=== PATIENT | female | born 1960 | race Caucasian/White ===

== ENCOUNTER → 2018-09-06 08:03 | Outpatient (CLI) | payer OTHER, SELFPAY ==
--- NOTE | 2018-09-06 | DI.MG.S_ITS ---
BILATERAL DIGITAL SCREENING MAMMOGRAM 3D/2D WITH CAD WITH AUGMENTATION: 09/06/2018 CLINICAL: Routine screening. Comparison is made to exams dated: 07/27/2017 mammogram, 09/02/2016 mammogram, and 09/02/2015 mammogram - [facility]. The tissue of both breasts is extremely dense, which lowers the sensitivity of mammography. Current study was also evaluated with a Computer Aided Detection (CAD) system. Bilateral breast implants are stable. No significant masses, calcifications, or other findings are seen in either breast. There has been no significant interval change. IMPRESSION: NEGATIVE There is no mammographic evidence of malignancy. A 1 year screening mammogram is recommended. This exam was interpreted at Station ID: [id number]. NOTE: For mammograms, a report in lay terms will be sent to the patient. Approximately 15% of breast malignancies will not be visualized mammographically. In the management of a palpable breast mass, a negative mammogram must not discourage biopsy of a clinically suspicious lesion. Electronically Signed By: Rosario [email or web address]/[email or web address]:09/06/2018 11:56:41 letter sent: Normal Exam ACR BI-RADS Category 1: Negative [id number]
== END ==
PROVIDERS: PCP Specialist; Visit Provider Specialist
DX: Z12.31 Encounter for screening mammogram for malignant neoplasm of breast (principal)
CPT/HCPCS: 77063; 77067

== ENCOUNTER → 2019-09-09 13:30 | Outpatient (CLI) | payer OTHER, SELFPAY ==
--- NOTE | 2019-09-09 | DI.MG.S_ITS ---
BILATERAL DIGITAL SCREENING MAMMOGRAM 3D/2D WITH CAD WITH AUGMENTATION: 09/09/2019 CLINICAL: Routine screening. Comparison is made to exams dated: 09/06/2018 mammogram - [facility], 07/27/2017 mammogram, 09/02/2016 mammogram, and 09/02/2015 mammogram - [facility]. The tissue of both breasts is extremely dense, which lowers the sensitivity of mammography. Current study was also evaluated with a Computer Aided Detection (CAD) system. Bilateral breast implants are stable. There are mole markers on both breasts. No significant masses, calcifications, or other findings are seen in either breast. There has been no significant interval change. IMPRESSION: NEGATIVE There is no mammographic evidence of malignancy. A 1 year screening mammogram is recommended. This exam was interpreted at Station ID: [id number]. NOTE: For mammograms, a report in lay terms will be sent to the patient. Approximately 15% of breast malignancies will not be visualized mammographically. In the management of a palpable breast mass, a negative mammogram must not discourage biopsy of a clinically suspicious lesion. Electronically Signed By: Jeff pete/aliya:09/09/2019 19:16:55 letter sent: Normal Exam ACR BI-RADS Category 1: Negative [id number]
== END ==
PROVIDERS: PCP Specialist; Visit Provider Specialist
DX: Z12.31 Encounter for screening mammogram for malignant neoplasm of breast (principal)
CPT/HCPCS: 77063; 77067

== ENCOUNTER 2019-09-20 00:54 | Observation (INO) | payer OTHER, SELFPAY ==
[2019-09-20] VITALS (8 sets, daily range): BP systolic 94–115; BP diastolic 60–89; PULSE 49–71; RESP 16–20; TEMP 36.5–36.8; O2SAT 94–100; BMI 23.3
--- NOTE | 2019-09-20 01:28 | DI.RAD.S_ITS ---
PROCEDURE: XR CHEST 1V INDICATIONS: chest pain TECHNIQUE: One view of the chest was acquired. COMPARISON: None. FINDINGS: Surgical changes and devices: None. Lungs and pleura: Lungs are clear. No pleural effusions or pneumothorax. Mediastinum: Mediastinal contours appear normal. Heart size is normal. Bones and chest wall: No suspicious bony lesions. Overlying soft tissues appear unremarkable. IMPRESSION: No acute cardiopulmonary disease process. Dictated by: Mare Justice MD, PhD on 09/20/2019 at 8:31 Approved by: Mare Justice MD, PhD on 09/20/2019 at 8:32
--- NOTE | 2019-09-20 01:28 | DI.US.S_ITS ---
PROCEDURE: US ABDOMEN LIMITED INDICATIONS: RIGHT UPPER QUADRANT PAIN TECHNIQUE: Real-time focused scanning was performed of the abdomen, with image documentation. COMPARISON: [facility], CT, CT ABDOMEN PELVIS W CON, 09/20/2019, 1:30. FINDINGS: Liver has normal sonographic appearance. No gallstones. Gallbladder wall is slightly thickened at 3.6 mm. Small amount of pericholecystic fluid. Negative sonographic Lala's sign. Biliary tree is nondilated the common bile duct measuring 2.5 mm. Pancreas is sonographically normal. IMPRESSION: 1. No cholelithiasis. 2. Nonspecific slight gallbladder wall thickening and small amount pericholecystic fluid. CT scan obtained 09/20/2019 demonstrates hepatic periportal edema and distended intrahepatic IVC possibly related to volume overload which could account for the pericholecystic fluid. If there is continued clinical concern for cholecystitis, than nuclear medicine HIDA scan should be considered for further evaluation. Dictated by: Mare Justice MD, PhD on 09/20/2019 at 8:14 Approved by: Mare Justice MD, PhD on 09/20/2019 at 8:19
--- NOTE | 2019-09-20 01:28 | DI.CT.S_ITS ---
PROCEDURE: CT ABDOMEN PELVIS W CON INDICATIONS: Colonoscopy today vomiting, increased abdominal pain TECHNIQUE: After the administration of intravenous contrast, 5 mm thick sections acquired from the diaphragm to the symphysis. 5 mm coronal and sagittal reformats were acquired. For radiation dose reduction, the following was used: automated exposure control, adjustment of mA and/or kV according to patient size. COMPARISON: [facility], , ABDOMEN LIMITED, 09/20/2019, 2:10. FINDINGS: Image quality: Excellent. ABDOMEN: Lung bases: Lung bases are clear. Heart size is normal. Note is made of right breast implant. Solid organs: There is a 5 mm indeterminate hypodense nodule in the anterior segment of the right hepatic lobe. Liver is demonstrates subtle nodular contour suggesting cirrhosis. There is periportal edema. Gallbladder contains no opaque gallstones. There is a small amount of pericholecystic fluid. Biliary system is dilated. Pancreas enhances normally. Spleen is normal in size and enhancement. No adrenal nodules. Kidneys demonstrate normal size and enhancement, without hydronephrosis. Peritoneum and bowel: There is mild colonic wall thickening in sigmoid colon suggesting colitis. Bowel loops demonstrate normal wall thickness and caliber. Normal appendix. There is a small amount of free fluid. No free air. Nodes and vessels: No retroperitoneal or mesenteric adenopathy by size criteria. Aorta and inferior vena cava are normal in size. Miscellaneous: No ventral hernias. PELVIS: Genitourinary: Bladder wall thickness is normal. Miscellaneous: No inguinal hernias or adenopathy. Bones: No suspicious bony lesions. No vertebral body compression fractures. IMPRESSION: 1. Nodular contour of liver suggesting cirrhosis. There is periportal edema. Please correlate with liver function tests. 2. A 5 mm indeterminate hepatic hypodensity in the anterior segment of the right hepatic lobe. Statistically, this most likely a cyst or hemangioma. 3. There is a small amount of ascites around liver and in the gallbladder fossa. No gallstones or gallbladder wall thickening. The findings could be secondary to liver disease such as hepatitis. 4. Mild colonic wall thickening in sigmoid colon suggesting mild colitis. 5. A small amount of free fluid in the cul-de-sac. Dictated by: Triston Meadows M.D. on 09/20/2019 at 8:11 Approved by: Triston Meadows M.D. on 09/20/2019 at 8:21
--- NOTE | 2019-09-20 01:30 | ED.ABDPAIN ---
HPI - Abdominal Pain General Chief Complaint: Abdominal Pain Stated Complaint: colonoscopy yes now with chest pain md sent Time Seen by Provider: 09/20/19 01:22 Source: patient Mode of arrival: Family Vehicle Limitations: no limitations History of Present Illness HPI narrative: Patient is a 58-year-old female who presents with abdominal pain and vomiting. She actually had a routine colonoscopy done today and telling him she had some polyps removed. She woke up she expected to have some abdominal cramping which she did however the pain seemed to move up into her chest and she has been vomiting nonstop. She denies shortness of breath or fevers. Her abdomen feels a little bloated to her. MD complaint: abdominal pain Onset (ago): hour(s) Pain Consistency: constant Location: diffuse Severity: moderate Quality: cramping Radiation: chest Related Data Home Medications Medication Instructions Recorded Confirmed estradiol [Estrace] 1 gm VAGINAL QWEEK #0 02/28/18 09/20/19 Previous Rx's Medication Instructions Recorded escitalopram oxalate 10 mg tablet 10 mg PO QDAY #90 tab 04/13/18 levothyroxine 88 mcg tablet 88 mcg PO QAM #90 tab 04/13/18 Allergies Allergy/AdvReac Type Severity Reaction Status Date / Time azithromycin Allergy Verified 09/20/19 01:17 morphine AdvReac Severe Hallucinati Verified 09/20/19 04:57 ng Review of Systems Review of Systems Narrative: GENERAL: Denies chills, fatigue, malaise, fever, sweats, travel HEENT: Denies sinus pain, ear pain, sore throat, difficulty swallowing, neck pain RESPIRATORY: Denies dyspnea, cough, wheezing, hemoptysis, sputum. CARDIOVASCULAR: Denies chest pain, palpitations, orthopnea, edema GASTROINTESTINAL: See HPI : Denies dysuria, frequency, incontinence, hematuria, urinary retention, flank pain. MUSCULOSKELETAL: Denies weakness, joint pain, or bony pain SKIN: No rash, no erythema, no pruritus NEUROLOGIC: Denies weakness, dizziness, headache, numbness, change in speech, confusion PSYCHIATRIC: No concerning psychosocial issues. 12 point review of systems is negative except for those stated above and HPI Patient History Medical History Ankle pain (Resolved) Anxiety (Chronic) Atypical mole (Resolved) Chickenpox (Resolved) Colon polyps (Resolved 2003) Fractures (Resolved) Hypothyroidism (Chronic 1999) Surgical History History of ankle surgery (Resolved 2011) Hx of breast augmentation (Resolved Unknown) Hx of section (Resolved 1990) Hx of hysterectomy (Chronic ~1999) Hx of tonsillectomy (Resolved Unknown) Family History Brother Age: 56 Colon polyps Brother Age: 46 Colon polyps Mother Age: 78 Hypertension High cholesterol Mental health problem Stroke Sister Age: 55 Uterine cancer Father Cancer Social History household members: spouse Smoking Status: Never smoker alcohol intake: current alcohol intake frequency: 0-2 drinks per day Alcohol type: wine Substance Use Type: does not use Exam Initial Vital Signs Initial Vital Signs: Vital Signs Temperature 97.8 F 09/20/19 01:04 Pulse Rate 71 09/20/19 01:04 Respiratory Rate 17 09/20/19 01:04 Blood Pressure 114/89 09/20/19 01:04 Pulse Oximetry 99 09/20/19 01:04 GENERAL: Well-appearing, well-nourished and in no acute distress. HEENT: Head atraumatic,EOMI, pupils reactive, face symmetric, moist mucous membranes CARDIOVASCULAR: Regular rate and rhythm without murmurs, rubs or gallops. RESPIRATORY: Breath sounds equal bilaterally, no wheezes rales or rhonchi. ABDOMEN: Soft, positive Lala sign tender right upper quadrant no guarding noted EXTREMITIES: Normal range of motion, no clubbing or edema. Neurovascularly intact NEUROLOGICAL: Alert and oriented x4.Normal gait and speech. SKIN: Warm, dry, no laceration, no petechiae, no rashes or lesions. Course Orders Ordered: ED Orders 09/20/19 01:03 EKG-12 Lead Routine 09/20/19 01:25 Complete Blood Count AUTO DIFF Stat Comprehensive Metabolic Panel Stat Lipase Stat Troponin & CK Cardiac Panel Stat 09/20/19 01:28 CT abdomen pelvis w con Stat US abdomen limited Stat XR chest 1V Stat Sodium Chloride (Normal Saline 0.9%) 1,000 mls @ 125 mls/hr IV CONT JON Ondansetron HCl (Zofran) 4 mg IV Q4HR PRN PRN Reason: Nausea And Vomiting Discontinued Medications Sodium Chloride (Normal Saline 0.9%) 1,000 mls @ 1,000 mls/hr IV BOLUS ONE Stop: 09/20/19 02:59 Last Admin: 09/20/19 02:18 Dose: 1,000 mls/hr Documented by: LISSETT Ketorolac Tromethamine (Toradol) 30 mg IV NOW ONE Stop: 09/20/19 02:01 Last Admin: 09/20/19 02:19 Dose: 30 mg Documented by: LISSETT Morphine Sulfate (Morphine) 2 mg IV Q4HR PRN PRN Reason: Pain, Mild (1-3) Ondansetron HCl (Zofran) 4 mg IV NOW ONE Stop: 09/20/19 02:01 Last Admin: 09/20/19 02:19 Dose: 4 mg Documented by: LISSETT Pantoprazole Sodium (Protonix) 40 mg IV NOW ONE Stop: 09/20/19 02:01 Last Admin: 09/20/19 02:19 Dose: 40 mg Documented by: LISSETT Vital Signs Vital signs: Vital Signs - 8 hr 09/20/19 01:04 09/20/19 01:14 09/20/19 02:07 Temperature 97.8 F Pulse Rate 71 58 L 60 Respiratory Rate 17 18 Blood Pressure 114/89 Blood Pressure [Left Arm] 114/89 103/63 Pulse Oximetry 99 100 09/20/19 03:16 Temperature Pulse Rate 56 L Respiratory Rate 18 Blood Pressure Blood Pressure [Left Arm] 105/60 Pulse Oximetry 98 MDM - Abdominal Pain Lab Data Attestation: I reviewed the patient's lab results. Result diagrams: 09/20/19 01:25 09/20/19 01:25 Labs: Lab Results 09/20/19 09/20/19 09/20/19 Range/Units 01:25 01:25 01:25 WBC 8.8 (4.5-11.0) X10^3/uL RBC 4.11 (4.0-5.2) X10^6/uL Hgb 13.0 (12.0-16.0) g/dL Hct 37.9 (36-46) % MCV 92.3 (80-100) fL MCH 31.6 (26-34) PG MCHC 34.3 (30-36) % RDW 13.3 (11.6-14.8) % Plt Count 140 L (150-400) X10^3/uL Neut % (Auto) 87.9 H (50-75) % Lymph % (Auto) 5.8 L (25-40) % [place] % (Auto) 4.7 (3-14) % Eos % (Auto) 1.2 L (2-4) % Baso % (Auto) 0.4 (0-2) % Neut # (Auto) 7700 H (0275-7552) /uL Lymph # (Auto) 500 L (7274-7022) /uL [place] # (Auto) 400 (0-900) /uL Eos # (Auto) 100 (0-450) /uL Baso # (Auto) 0 (0-100) /uL Sodium 141 (137-145) mmol/L Potassium 3.3 L (3.4-5.1) mmol/L Chloride 99 (98-107) mmol/L Carbon Dioxide 29 (22-32) mmol/L BUN 14 (7-17) mg/dL Creatinine 0.60 (0.52-1.04) mg/dL Estimated GFR > 60.0 (>60) mL/min BUN/Creatinine Ratio 23.3 H (6-22) Glucose 107 H (70-100) mg/dL Calcium 8.4 (8.4-10.2) mg/dL Total Bilirubin 2.0 H (0.2-1.3) mg/dL AST 570 H (14-36) IU/L ALT 279 H (<35) IU/L Alkaline Phosphatase 69 (38-126) U/L Total Creatine Kinase 95 (30-135) U/L CK-MB (CK-2) TNP CK-MB (CK-2) Rel Index TNP Troponin I < 0.012 (0.01-0.034) ng/mL Total Protein 6.7 (6.3-8.2) g/dL Albumin 4.5 (3.5-5.0) g/dL Globulin 2.2 (1.7-4.1) g/dL Albumin/Globulin Ratio 2.0 (1.0-2.8) Lipase 70 (23-300) U/L Imaging Data CT scan - abdomen: Radiologist's impression: Preliminary report. Periportal edema with distended intrahepatic IVC and small perihepatic fluid including jayla cholecystic fluid. This is a nonspecific however can be seen with volume overload. Other causes of periportal edema are not excluded. 2. No bowel injury or obstruction post colonoscopy. Suspect incomplete distention of the descending colon versus wall thickening the air-filled colon is thin walled US - abdomen: Radiologist's impression: Preliminary report small pericholecystic fluid without gallstones or gallbladder wall thickening. Negative Lala sign. This CT shows nonspecific periportal edema with distended intrahepatic IVC which can be seen with volume overload. This may account for jayla cholecystic fluid. ECG Data Attestation: I personally reviewed and interpreted this ECG as follows: Prior ECG tracings: not available for review Interpretation: Normal sinus rhythm rate 55 p.r. interval 160 for QRS [address] elevations depressions or T-wave inversions no sign of ischemia MDM Narrative Medical decision making narrative: Patient does have some mild right upper quadrant pain as she has significantly elevated liver enzymes along with elevated bilirubin. No evidence of gallstones or thickening gall bladder wall. I have discussed case with on-call surgery Dr. rey. At this time recommends observation only. Bridging orders placed, will recheck blood work. CT result ultrasound results blood work and symptoms do not quite match. This time will recheck blood work, later. Discharge Plan Departure Patient Disposition: Admitted as Observation Clinical Impression: Elevated liver enzymes Discharge Date/Time: 09/20/19 04:12 Admit Date/Time: 09/20/19 04:04 Admit Provider: Ruperto Rey
[2019-09-20 01:36] LABS: Add Manual Diff / Slide Review NO; Basophils Absolute Auto 0 /uL (0-100); Basophils Percent Auto 0.4 % (0-2); Eosinophils Absolute Auto 100 /uL (0-450); Eosinophils Percent Auto 1.2 % (2-4); Hematocrit 37.9 % (36-46); Lymphocytes Absolute Auto 500 /uL (1100-4500); Lymphocytes Percent Auto 5.8 % (25-40); Mean Corpuscular HGB Conc 34.3 % (30-36); Mean Corpuscular Hemoglobin 31.6 PG (26-34); Mean Corpuscular Volume 92.3 fL (80-100); Monocytes Absolute Auto 400 /uL (0-900); Monocytes Percent Auto 4.7 % (3-14); Neutrophils Absolute Auto 7700 /uL (1500-7000); Neutrophils Percent Auto 87.9 % (50-75); Platelet Count 140 X10^3/uL (150-400); Red Blood Cell Count 4.11 X10^6/uL (4.0-5.2); Red Cell Distribution Width 13.3 % (11.6-14.8); White Blood Cell Count 8.8 X10^3/uL (4.5-11.0)
[2019-09-20 01:49] LABS: Creatine Kinase 95 U/L (30-135)
[2019-09-20 01:50] LABS: Alanine Aminotransferase 279 IU/L (<35); Albumin 4.5 g/dL (3.5-5.0); Alkaline Phosphatase 69 U/L (38-126); Aspartate Aminotransferase 570 IU/L (14-36); BUN Creatinine Ratio 23.3 (6-22); Blood Urea Nitrogen 14 mg/dL (7-17); Calcium 8.4 mg/dL (8.4-10.2); Carbon Dioxide 29 mmol/L (22-32); Chloride 99 mmol/L (98-107); Estimated Glomerular Filt Rate > 60.0 mL/min (>60); Globulin 2.2 g/dL (1.7-4.1); Glucose 107 mg/dL (70-100); HEMOLYSIS 20 (0-50); Lipase 70 U/L (23-300); Potassium 3.3 mmol/L (3.4-5.1); Sodium 141 mmol/L (137-145); Total Protein 6.7 g/dL (6.3-8.2)
[2019-09-20 02:01] LABS: Troponin I < 0.012 ng/mL (0.01-0.034)
[2019-09-20] MEDS: SODIUM CHLORIDE 0.9% 1,000 ML 1000 ML IV (02:18)
[2019-09-20] MEDS: ONDANSETRON 4 MG/2 ML INJ IV (02:19)
[2019-09-20] MEDS: KETOROLAC 60 MG/2 ML VIAL 30 MG IV (02:19)
[2019-09-20] MEDS: PANTOPRAZOLE 40 MG VIAL IV (02:19)
--- NOTE | 2019-09-20 05:01 | PC.ADMIT ---
[email or web address] Admission Note: The patient,Pema Sams,58 y/o, was given written information regarding hospital policies, unit procedures and contact persons. Patient's smoking status: Never smoker. Vital Signs - 8 hr 09/20/19 01:04 09/20/19 01:14 09/20/19 02:07 Temperature 97.8 F Pulse Rate 71 58 L 60 Respiratory Rate 17 18 Blood Pressure 114/89 Blood Pressure [Left Arm] 114/89 103/63 Pulse Oximetry 99 100 09/20/19 03:16 09/20/19 04:08 09/20/19 04:15 Temperature 97.7 F Pulse Rate 56 L 56 L 58 L Respiratory Rate 18 20 18 Blood Pressure 115/74 Blood Pressure [Left Arm] 105/60 109/69 Pulse Oximetry 98 100 99 Pt arrived via wheelchair accompanied by ED POWERHOUSE ENGINEER, transferred self to bed, VSS, on RA, all systems except GI WNL. Pt had c/o abdominal pain, nausea and vomiting that brought her in today but has since resolved. BTs are hypoactive and pt reports that she has not passed stool or flatus since colonoscopy on 09/19. Pt denies pain, hx of falls, and can make needs known, call light in reach, functional, and pt demonstrated use. Pt is a low fall risk and is independent in the room.
--- NOTE | 2019-09-20 07:55 | P.HP_ITS ---
History of Present Illness History of Present Illness Date Patient Seen: 09/20/19 Time Patient Seen: 08:11 Chief complaint: colonoscopy yes now with chest pain md sent Narrative: This is a 50-year-old woman who underwent a routine colonoscopy yesterday an outside facility and then developed epigastric and chest pain in presented to the emergency room. Cardiac workup including laboratory studies and EKG were negative. She had a CT abdomen pelvis as well as an ultrasound that demonstrated pericholecystic fluid no evidence of colonic wall thickening or free air. With 1 dose of Toradol her abdominal pain completely resolved. Labs WBC 9, TB 2.0, AST 570, ALT 280 AP 70 Lipase normal. His a history of biliary colic and says that this episode is similar in nature to previous ones. She is without chest pain shortness of breath nausea vomiting or abdominal pain at this time. Medical history is significant for hypothyroidism and C section. No history of coronary artery disease valvular disease stroke peripheral vascular disease diabetes pulmonary or renal insufficiency. Patient History Medical History Ankle pain (Resolved) Anxiety (Chronic) Atypical mole (Resolved) Chickenpox (Resolved) Colon polyps (Resolved 2003) Fractures (Resolved) Hypothyroidism (Chronic 1999) Surgical History History of ankle surgery (Resolved 2011) Hx of breast augmentation (Resolved Unknown) Hx of section (Resolved 1990) Hx of hysterectomy (Chronic ~1999) Hx of tonsillectomy (Resolved Unknown) Family & Social History Family History Brother Age: 56 Colon polyps Brother Age: 46 Colon polyps Mother Age: 78 Hypertension High cholesterol Mental health problem Stroke Sister Age: 55 Uterine cancer Father Cancer Social History: household members spouse Prior Living Arrangements House Safety & Behavioral: Feels Safe in Current Yes Environment Been Physically Hurt or No Threatened By a Person Suicidal Ideation Description None Suicide Plan Description No Plan Tobacco & Substance use: Smoking Status Never smoker alcohol intake current alcohol intake frequency 0-2 drinks per day Substance Use Type does not use Meds Home Medications and Allergies Home Medications Medication Instructions Recorded Confirmed Type estradiol [Estrace] 1 gm VAGINAL QWEEK #0 02/28/18 09/20/19 History escitalopram oxalate 10 mg tablet 10 mg PO QDAY #90 tab 04/13/18 09/20/19 Rx levothyroxine 88 mcg tablet 88 mcg PO QAM #90 tab 04/13/18 09/20/19 Rx Allergies Allergy/AdvReac Type Severity Reaction Status Date / Time azithromycin Allergy Verified 09/20/19 01:17 morphine AdvReac Severe Hallucinati Verified 09/20/19 04:57 ng Review of Systems Review of Systems Narrative: A complete review of systems is negative except as noted in the HPI Exam Vital Signs (past 8 hours): - 09/20/19 01:04 09/20/19 01:14 09/20/19 02:07 Temperature 97.8 F Pulse Rate 71 58 L 60 Respiratory Rate 17 18 Blood Pressure 114/89 Blood Pressure [Left Arm] 114/89 103/63 Pulse Oximetry 99 100 09/20/19 03:16 09/20/19 04:08 09/20/19 04:15 Temperature 97.7 F Pulse Rate 56 L 56 L 58 L Respiratory Rate 18 20 18 Blood Pressure 115/74 Blood Pressure [Left Arm] 105/60 109/69 Pulse Oximetry 98 100 99 Oxygen Delivery Method Room Air Narrative Exam Narrative: General-no acute distress, well nourished HEENT-moist mucous membranes, no scleral icterus Neck-supple, no lymphadenopathy Chest- non labored respirations, clear to auscultation bilaterally Cardiac-regular rate no peripheral edema Abdomen-soft, nontender, non distended Extremities-warm, well perfused Neurological-alert and oriented, no focal deficits Objective Labs Result Diagrams: 09/20/19 01:25 09/20/19 01:25 Labs: Laboratory Results - last 24 hr 09/20/19 09/20/19 09/20/19 01:25 01:25 01:25 WBC 8.8 RBC 4.11 Hgb 13.0 Hct 37.9 MCV 92.3 MCH 31.6 MCHC 34.3 RDW 13.3 Plt Count 140 L Neut % (Auto) 87.9 H Lymph % (Auto) 5.8 L [place] % (Auto) 4.7 Eos % (Auto) 1.2 L Baso % (Auto) 0.4 Neut # (Auto) 7700 H Lymph # (Auto) 500 L [place] # (Auto) 400 Eos # (Auto) 100 Baso # (Auto) 0 Sodium 141 Potassium 3.3 L Chloride 99 Carbon Dioxide 29 BUN 14 Creatinine 0.60 Estimated GFR > 60.0 BUN/Creatinine Ratio 23.3 H Glucose 107 H Calcium 8.4 Total Bilirubin 2.0 H AST 570 H ALT 279 H Alkaline Phosphatase 69 Total Creatine Kinase 95 CK-MB (CK-2) TNP CK-MB (CK-2) Rel Index TNP Troponin I < 0.012 Total Protein 6.7 Albumin 4.5 Globulin 2.2 Albumin/Globulin Ratio 2.0 Lipase 70 Assessment & Plan Assessment & Plan narrative: This is a 50-year-old female history of biliary colic who underwent a colonoscopy at an outside facility yesterday who presents with epigastric pain and mild transaminitis. Cardiac workup negative. Her abdominal pain is completely resolved at this time afebrile, normal vitals and a CT abdomen pelvis with no free air no bowel wall thickening suggestive of perforation. Labs WBC 9, TB 2.0, AST 570, ALT 280 AP 70 Lipase normal. I reviewed her CT myself and there is pericholecystic fluid no choledocholithiasis or cholelithiasis. It is unclear as to what the source of her transaminitis mild hyperbilirubinemia is. -NPO IV fluid -repeat complete metabolic panel in addition to fractionation of the bilirubin this AM -SCDs and Lovenox for VT prophylaxis -will obtain records of colonoscopy from yesterday at outside facility Quality VTE Deep Vein Thrombosis/Pulmonary Embolism Present on Admission: No
[2019-09-20 09:36] LABS: Procalcitonin < 0.05 ng/mL (<0.5)
[2019-09-20] MEDS: ENOXAPARIN 40 MG/0.4 ML SYRINGE SUBCUT (09:42)
[2019-09-20] MEDS: ESCITALOPRAM 10 MG TABLET PO (09:43)
[2019-09-20] MEDS: POTASSIUM CHLORIDE 20 MEQ TAB 40 MEQ PO (09:43)
[2019-09-20] MEDS: LEVOTHYROXINE 88 MCG TABLET PO (09:43)
[2019-09-20 09:55] LABS: Alanine Aminotransferase 309 IU/L (<35); Albumin 3.8 g/dL (3.5-5.0); Alkaline Phosphatase 60 U/L (38-126); Aspartate Aminotransferase 347 IU/L (14-36); BUN Creatinine Ratio 16.7 (6-22); Bilirubin Direct 0.2 mg/dL (0.0-0.4); Bilirubin Total 1.3 mg/dL (0.2-1.3); Blood Urea Nitrogen 10 mg/dL (7-17); Calcium 8.9 mg/dL (8.4-10.2); Carbon Dioxide 31 mmol/L (22-32); Chloride 107 mmol/L (98-107); Estimated Glomerular Filt Rate > 60.0 mL/min (>60); Globulin 1.9 g/dL (1.7-4.1); Glucose 105 mg/dL (70-100); HEMOLYSIS < 15 (0-50); Potassium 4.2 mmol/L (3.4-5.1); Sodium 141 mmol/L (137-145); Total Protein 5.7 g/dL (6.3-8.2)
--- NOTE | 2019-09-20 12:23 | PM.PN.1 ---
Subjective Subjective Date Patient Seen: 09/20/19 Time Patient Seen: 12:23 Interval history: Pt denies pain, nausea, jaundice. She says she feels fine. Would like to eat and go home. Exam Vital Signs (past 8 hours): - 09/20/19 07:55 09/20/19 11:44 Temperature 98.2 F 98.2 F Pulse Rate 49 L 59 L Respiratory Rate 16 16 Blood Pressure 94/60 100/62 Pulse Oximetry 100 94 Oxygen Delivery Method Room Air Oxygen Flow Rate 0 Narrative Exam Narrative: GENERAL: Well groomed and cooperative. Appears stated age. Answers questions promptly and appropriately. Vital signs noted. HENT: Normocephalic, atraumatic. Hearing intact. Oral mucosa is pink and moist. EYES: Conjunctiva pink, sclera white, no periorbital swelling. CARDIOVASCULAR: Regular rate. No pedal edema. RESPIRATORY: Normal respiratory rate, breathing comfortably on room air. GASTROINTESTINAL: Abdomen soft and non-distended; mild TTP in mid and right epigastrium GENITALURINARY: No flank tenderness. MUSCULOSKELETAL: Equal tone and mass bilaterally. SKIN: Warm, dry, soft, appropriate color for ethnicity. No other lesions, rashes, or wounds. NEURO: Alert and Oriented X 3. No gross sensory deficits, or cognitive issues. PSYCH: Appropriate affect and mood. Objective Labs Result Diagrams: 09/20/19 01:25 09/20/19 08:30 Labs: Laboratory Results - last 24 hr 09/20/19 09/20/19 09/20/19 01:25 01:25 01:25 WBC 8.8 RBC 4.11 Hgb 13.0 Hct 37.9 MCV 92.3 MCH 31.6 MCHC 34.3 RDW 13.3 Plt Count 140 L Neut % (Auto) 87.9 H Lymph % (Auto) 5.8 L [place] % (Auto) 4.7 Eos % (Auto) 1.2 L Baso % (Auto) 0.4 Neut # (Auto) 7700 H Lymph # (Auto) 500 L [place] # (Auto) 400 Eos # (Auto) 100 Baso # (Auto) 0 Sodium 141 Potassium 3.3 L Chloride 99 Carbon Dioxide 29 BUN 14 Creatinine 0.60 Estimated GFR > 60.0 BUN/Creatinine Ratio 23.3 H Glucose 107 H Calcium 8.4 Total Bilirubin 2.0 H Direct Bilirubin AST 570 H ALT 279 H Alkaline Phosphatase 69 Total Creatine Kinase 95 CK-MB (CK-2) TNP CK-MB (CK-2) Rel Index TNP Troponin I < 0.012 Total Protein 6.7 Albumin 4.5 Globulin 2.2 Albumin/Globulin Ratio 2.0 Lipase 70 Procalcitonin 09/20/19 09/20/19 09/20/19 08:30 08:30 08:30 WBC RBC Hgb Hct MCV MCH MCHC RDW Plt Count Neut % (Auto) Lymph % (Auto) [place] % (Auto) Eos % (Auto) Baso % (Auto) Neut # (Auto) Lymph # (Auto) [place] # (Auto) Eos # (Auto) Baso # (Auto) Sodium 141 Potassium 4.2 Chloride 107 Carbon Dioxide 31 BUN 10 Creatinine 0.60 Estimated GFR > 60.0 BUN/Creatinine Ratio 16.7 Glucose 105 H Calcium 8.9 Total Bilirubin 1.3 Direct Bilirubin 0.2 AST 347 H ALT 309 H Alkaline Phosphatase 60 Total Creatine Kinase CK-MB (CK-2) CK-MB (CK-2) Rel Index Troponin I Total Protein 5.7 L Albumin 3.8 Globulin 1.9 Albumin/Globulin Ratio 2.0 Lipase Procalcitonin < 0.05 Assessment & Plan Assessment and plan (1) Elevated liver enzymes: Current visit: Yes Status: Acute (2) Abnormal gall bladder diagnostic imaging: Current visit: Yes Status: Acute (3) Abdominal pain: Current visit: Yes Status: Acute Assessment & Plan narrative: This is a 58-year-old woman admitted to the hospital early this morning for severe acute abdominal pain and associated transaminitis. Her symptoms have almost entirely resolved. She has a tiny bit of tenderness in the epigastrium, but no pain, nausea, vomiting. She has an appetite and would like to eat I have explained to her that she has abnormal liver enzymes and a somewhat abnormal gallbladder on imaging. Although the CT scan mentions cirrhosis, it appears that her liver is essentially normal, which is verified on ultrasound. Her symptoms, labs, and imaging findings are most consistent with biliary dyskinesia. I have recommended to her that she have a workup for this as an outpatient which should include repeat complete metabolic panel and HIDA scan. She would prefer to do this as an outpatient. Plan: P.o. challenge If tolerates diet patient may be discharged home Follow-up with Dr. Skinner or myself in the next 1-2 weeks for a recheck of her symptoms, CMP, and HIDA Return to ER if recurrent symptoms, fever, or jaundice Time Spent With Patient Time with patient: 25 - 35 minutes (25 minutes were spent face to face with the patient. More than 50% of the time was spent in counseling and co-ordination of care regarding her abnormal lab and imaging findings related to her biliary symptoms, possible biliary dyskinesia, and transaminitis.) Quality VTE Deep Vein Thrombosis/Pulmonary Embolism Present on Admission: No
--- NOTE | 2019-09-20 12:58 | PC.NURSE ---
Pt resting in bed, states she would really like to walk around as she is antsy just laying in bed. Removed scd's for Pt ambulation. Pt states she has no pain or nausea after eating and is looking forward to going home at 1600.
--- NOTE | 2019-09-20 14:58 | PC.NURSE ---
Pt dressed and ready for discharge home with Po who is present at this time. Went over d/c instructions with Pt and Spouse - discussed d/c meds, time of last dose, reviewed stroke education, follow up, low fat diet, and answered all questions. HL was removed. Pt out via w/c by this RN to POV with Spouse and all belongings.
--- NOTE | 2019-09-21 10:19 | CM.DANOTE ---
Discharge Planning/Care Management DCP: assessment: late entry for 09/20: case was received, EMR reviewed and discussed in Team Rounds. Pt is a 59 year old female who admitted to care of [facility] 09/20: 0400. At time of Rounds POC was newly in process. Payer: [employer] PCP: DR. Collin Pina did see pt about noon and ok'd her for a d/c home and with pt's preferance to have continued workup in the outpt setting. Pt did go home with her a couple hours later with no needs identified by the care team members. Advanced directive, confirm from FAMILY Start: 09/20/19 04:40 Freq: Q24H Status: Discharge Protocol: Document 09/20/19 09:00 CM (Rec: 09/20/19 09:44 CM [id number]) Advance Directive, confirm on record Time 09:44 Person contacted Pt Copy received No CM Discharge Assessment Start: 09/21/19 10:17 Freq: Status: Active Protocol: Document 09/21/19 10:18 ITV (Rec: 09/21/19 10:19 ITV [id number]) Discharge Planning Assessment Advance Directives? Yes History Provided By Medical Record Prior Living Arrangements House Household Members spouse Is patient alert and oriented? Yes Review Status In Process
--- NOTE | 2019-10-11 23:33 | PC.NURSE ---
on 09/20/2019 1 liter normal saline infused at 0400.
== END 2019-09-20 15:00 | disposition home or self-care (01) ==
LOC: ED 02:51 → AC 04:04
PROVIDERS: Admitting Provider Surgery; Emergency Provider Emergency Medicine; PCP Specialist; Visit Provider Surgery
DX: R93.2 Abnormal findings on diagnostic imaging of liver and biliary tract (principal); R74.8 Abnormal levels of other serum enzymes; R10.9 Unspecified abdominal pain; R11.10 Vomiting, unspecified
CPT/HCPCS: 36415; 71045; 74177; 76705; 80053; 82248; 82550; 83690; 84145; 84484; 85025; 93005; 93010; 96361; 96372; 96374; 96375; 99219; 99283; 99285; G0378; C9113; J1650; J1885; J2405; Q9967

== ENCOUNTER 2019-10-15 06:13 | Day surgery (SDC) | payer OTHER, SELFPAY ==
[2019-09-20 04:18] VITALS: BMI 23.3
[2019-10-14 08:23] VITALS: BMI 23.3
[2019-10-15] VITALS (11 sets, daily range): BP systolic 97–123; BP diastolic 58–78; PULSE 50–71; RESP 8–16; TEMP 36.2–36.7; O2SAT 98–100; BMI 23.3
--- NOTE | 2019-10-15 | PATH_ITS ---
[facility] Accession Number: [id number] . 01 Material submitted: . gallbladder - GALLBLADDER . 02 Diagnosis: Gallbladder, Cholecystectomy: Mild chronic cholecystitis. No evidence of neoplasm. MRV 10/18/2019 1525 Local . 02 Electronically signed: . Charles Wen MD, PhD, Pathologist NPI- [id number] . 01 Gross description: . Received in formalin, labeled gallbladder, is an intact gallbladder (length-8.0 cm, diameter-2.7 cm) with blue-green smooth and shiny serosa and a patent cystic duct. No lymph nodes are identified. The lumen contains dark green watery bile. No calculi are identified. The mucosa is green smooth and flat. The wall is up to 0.1 cm thick. No nodules, masses or lesions are identified. Section code: (A1) cystic duct resection margin and two serial sections from the body; (A2) two longitudinal sections from the fundus. ([id number]) /[facility] 10/16/2019 1642 Local . 02 Pathologist provided ICD-10: K82.8, K81.1 . 02 CPT . 121023 Performed at: 01 [facility] [address], [place], [place] [id number] MD Misael Stein MD Phone: [phone] Performed at: 02 [facility] [address] [place], [place] [id number] MD Flakita Davis MD Phone: [phone]
[2019-10-15] MEDS: LACTATED RINGERS 1,000 ML 42 ML IV (07:20)
--- NOTE | 2019-10-15 07:35 | PM.PREOP ---
Pre-operative Note Interval Note History & Physical reviewed/Exam performed by Physician: Yes Changes to H&P: No
[2019-10-15] MEDS: CEFAZOLIN 2 GM/100 ML FROZ.PIGGY IV (07:51)
--- NOTE | 2019-10-15 08:09 | SUR.OPER ---
Supine on padded OR bed, head on pillow, safety belt at thigh, left arm padded and tucked at side. Right arm secured on padded arm oard <90 degrees abduction. Legs uncrossed. Padded footboard in place. Tape over blanket to secure lower legs.
[2019-10-15] MEDS: BUPIVACAINE 0.25% (PF) VIAL 30 ML INJ (08:21)
--- NOTE | 2019-10-15 09:11 | PM.OP.1 ---
Operative Date/Time/Diagnoses Date of procedure: 10/15/19 Time of procedure: 09:11 Pre-op diagnosis: Biliary dyskinesia Post-op diagnosis: same Procedure & Clinicians Procedure: Laparoscopic cholecystectomy Same procedure as scheduled: Yes Indications: This is a 59-year-old woman with biliary dyskinesia who presents for elective laparoscopic cholecystectomy. Please refer to the H&P for further detail. Surgeon: Ruperto Marcus Click Yes if Unassisted: No Anesthesia Type: General Operative Notes Findings: Distended gallbladder no acute cholecystitis Specimen(s): other (Gallbladder) Estimated Blood Loss (mL): 10 Procedure in detail: The patient was brought to the operating room placed supine on the table. Bilateral lower extremity compression devices were applied. General anesthesia was induced and they were intubated with an endotracheal tube. They received 3.75 g of Zosyn prior to skin incision. A time-out was performed to ensure the correct patient procedure necessary equipment within the operating room. They were then prepped and draped in the usual sterile fashion. Infraumbilical incision was made the umbilical stalk was grasped and elevated and the fascia was sharply incised. The abdomen was entered atraumatically. A 10 mm trocar was then placed into the abdomen. Pneumoperitoneum was established. The laparoscopic camera was inserted into the abdomen inspection was made that demonstrated no evidence of injury upon entry. We then placed our working ports the 1st 5 mm port high in the epigastrium and then 2 in the right upper quadrant. The gallbladder was grasped and retracted over the liver and grasped laterally by the fundus. The triangle of Calot was exposed. The triangle of calot was then skeletonized using hook electrocautery and demonstrated the cystic duct clearly entering the gallbladder the cystic artery and the liver and in the background. With the critical view of safety established the cystic duct was clipped twice proximally and once distally and then sharply divided and the cystic artery was taken in the same fashion. Next the gallbladder was removed from the liver bed using electro cautery. The liver bed was then inspected for hemostasis and this was achieved. The abdomen was irrigated with sterile saline and inspection was made that showed the clips in good position. The specimen was removed using Endo-Catch. The abdomen was desufflated. The the fascia of the umbilicus was closed with 0 Vicryl in a adqpik-ct-qfeog fashion. Skin incisions were irrigated and closed with 4-0 Monocryl. The wounds were sealed with Dermabond. Patient emerged from general anesthesia was extubated and transferred to the postoperative care unit missed stable condition. The sponge and instrument count at the end of the operation was correct. Complications: none Post-operative Condition: stable Disposition: same day surgery
== END 2019-10-15 10:30 | disposition home or self-care (01) ==
PROVIDERS: PCP Specialist; Visit Provider Surgery
PROC: 0FT44ZZ Resection of Gallbladder, Percutaneous Endoscopic Approach (ICD-10-PCS; CPT 47562; principal; 2019-10-15 07:45)
DX: K81.1 Chronic cholecystitis (principal); F41.9 Anxiety disorder, unspecified; E03.9 Hypothyroidism, unspecified
CPT/HCPCS: 47562; J0690; J1100; J1885; J2250; J2405; J2704; J3010

== ENCOUNTER → 2019-11-11 11:59 | Outpatient (CLI) | payer OTHER, SELFPAY ==
[2019-09-20 04:18] VITALS: BMI 23.3
--- NOTE | 2019-11-11 | DI.US.S_ITS ---
PROCEDURE: US PELVIC COMPLETE INDICATIONS: abdominal distension (gaseous) TECHNIQUE: Real-time scanning was performed of the pelvic organs, with image documentation. Additional endovaginal scanning was necessary due to incomplete visualization of the adnexal and endometrial structures by transabdominal scanning. COMPARISON: CT abdomen pelvis 09/20/2019. FINDINGS: Transabdominal scanning: Limited scanning through the kidneys shows no hydronephrosis. No pathologic free abdominal or pelvic fluid. Endovaginal scanning: Uterus: Surgically absent. Vaginal cuff appears normal. Ovaries: Not identified. Adnexa appear normal. IMPRESSION: Negative exam. No free fluid. Ovaries are not identified. Dictated by: Hollis Elkins M.D. on 11/11/2019 at 17:22 Approved by: Hollis Elkins M.D. on 11/11/2019 at 17:25
[2019-11-11 15:13] LABS: Alanine Aminotransferase 29 IU/L (<35); Albumin 4.8 g/dL (3.5-5.0); Alkaline Phosphatase 52 U/L (38-126); Aspartate Aminotransferase 32 IU/L (14-36); BUN Creatinine Ratio 24.3 (6-22); Bilirubin Total 0.9 mg/dL (0.2-1.3); Blood Urea Nitrogen 17 mg/dL (7-17); Calcium 9.8 mg/dL (8.4-10.2); Carbon Dioxide 30 mmol/L (22-32); Chloride 100 mmol/L (98-107); Estimated Glomerular Filt Rate > 60.0 mL/min (>60); Globulin 2.4 g/dL (1.7-4.1); Glucose 101 mg/dL (70-100); HEMOLYSIS < 15 (0-50); Potassium 4.1 mmol/L (3.4-5.1); Sodium 140 mmol/L (137-145); Total Protein 7.2 g/dL (6.3-8.2)
== END ==
PROVIDERS: Surgery; PCP Specialist; Visit Provider Obstetrics & Gynecology
DX: R14.0 Abdominal distension (gaseous) (principal); R74.8 Abnormal levels of other serum enzymes
CPT/HCPCS: 36415; 76830; 76856; 80053

== ENCOUNTER → 2020-09-10 11:38 | Outpatient (CLI) | payer OTHER, SELFPAY ==
[2019-09-20 04:18] VITALS: BMI 23.3
--- NOTE | 2020-09-10 | DI.MG.S_ITS ---
BILATERAL DIGITAL SCREENING MAMMOGRAM 3D/2D WITH CAD WITH AUGMENTATION: 09/10/2020 CLINICAL: Routine screening. Family history of breast cancer. Comparison is made to exams dated: 09/09/2019 mammogram, 09/06/2018 mammogram - [facility], and 07/27/2017 mammogram - [facility] Breast imaging at [facility]. The tissue of both breasts is extremely dense, which lowers the sensitivity of mammography. Current study was also evaluated with a Computer Aided Detection (CAD) system. Bilateral breast implants are stable. There are mole markers on both breasts. No significant masses, calcifications, or other findings are seen in either breast. There has been no significant interval change. IMPRESSION: NEGATIVE There is no mammographic evidence of malignancy. A 1 year screening mammogram is recommended. This exam was interpreted at Station ID: [id number]. NOTE: For mammograms, a report in lay terms will be sent to the patient. Approximately 15% of breast malignancies will not be visualized mammographically. In the management of a palpable breast mass, a negative mammogram must not discourage biopsy of a clinically suspicious lesion. Electronically Signed By: Nader colon/aliya:09/10/2020 12:05:01 letter sent: Normal Exam ACR BI-RADS Category 1: Negative 3341F
== END ==
PROVIDERS: PCP Specialist; Referring Provider Obstetrics & Gynecology; Visit Provider Obstetrics & Gynecology
DX: Z12.31 Encounter for screening mammogram for malignant neoplasm of breast (principal); Z80.3 Family history of malignant neoplasm of breast
CPT/HCPCS: 77063; 77067

== ENCOUNTER → 2021-10-05 09:59 | Outpatient (CLI) | payer OTHER, SELFPAY ==
[2021-08-16 08:51] VITALS: BMI 23.3
--- NOTE | 2021-10-05 | DI.MG.S_ITS ---
BILATERAL DIGITAL SCREENING MAMMOGRAM 3D/2D WITH CAD WITH AUGMENTATION: 10/05/2021 CLINICAL: Routine screening. Family history of breast cancer. Comparison is made to exams dated: 09/10/2020 mammogram, 09/09/2019 mammogram, and 09/06/2018 mammogram - [facility]. The tissue of both breasts is extremely dense, which lowers the sensitivity of mammography. Current study was also evaluated with a Computer Aided Detection (CAD) system. Bilateral breast implants are stable. There are mole markers on both breasts. No significant masses, calcifications, or other findings are seen in either breast. There has been no significant interval change. IMPRESSION: NEGATIVE There is no mammographic evidence of malignancy. A 1 year screening mammogram is recommended. This exam was interpreted at Station ID: [id number]. NOTE: For mammograms, a report in lay terms will be sent to the patient. Approximately 15% of breast malignancies will not be visualized mammographically. In the management of a palpable breast mass, a negative mammogram must not discourage biopsy of a clinically suspicious lesion. Electronically Signed By: Allie perkins/aliya:10/05/2021 12:47:29 letter sent: Normal Exam ACR BI-RADS Category 1: Negative 3341F
== END ==
PROVIDERS: PCP Internal Medicine; Referring Provider Obstetrics & Gynecology; Visit Provider Obstetrics & Gynecology
DX: Z12.31 Encounter for screening mammogram for malignant neoplasm of breast (principal); Z80.3 Family history of malignant neoplasm of breast
CPT/HCPCS: 77063; 77067

== ENCOUNTER → 2022-10-11 08:10 | Outpatient (CLI) | payer OTHER, SELFPAY ==
[2021-08-16 08:51] VITALS: BMI 23.3
--- NOTE | 2022-10-11 | DI.MG.S_ITS ---
BILATERAL DIGITAL SCREENING MAMMOGRAM 3D/2D WITH CAD WITH AUGMENTATION: 10/11/2022 CLINICAL: Routine screening. Family history of breast cancer. Comparison is made to exams dated: 10/05/2021 mammogram, 09/10/2020 mammogram, and 09/09/2019 mammogram - [facility]. Both breasts are extremely dense, which lowers the sensitivity of mammography (category d />75% glandular tissue). Current study was also evaluated with a Computer Aided Detection (CAD) system. Bilateral breast implants are stable. There are mole markers on both breasts. No significant masses, calcifications, or other findings are seen in either breast. There has been no significant interval change. IMPRESSION: NEGATIVE There is no mammographic evidence of malignancy. A 1 year screening mammogram is recommended. Based on Tyrer-Cuzick model (a risk assessment model), the patient's lifetime risk is 20.7% and her 10 year risk is 9.1%. If a patient has an elevated risk, a more comprehensive evaluation should be considered and/or a referral to a genetic counselor. The [place] Cancer Society, [employer] College of Radiology, and NCCN Guidelines advise the consideration of Breast MRI as an adjunct to screening mammography in patients whose Lifetime risk to develop breast cancer is 20% or higher. This exam was interpreted at Station ID: [id number]. NOTE: For mammograms, a report in lay terms will be sent to the patient. Approximately 15% of breast malignancies will not be visualized mammographically. In the management of a palpable breast mass, a negative mammogram must not discourage biopsy of a clinically suspicious lesion. Electronically Signed By: Allie perkins/aliya:10/11/2022 16:25:17 copy to: DAREN CASTRO [facility], ph: [phone], fax: [phone] letter sent: Normal Exam ACR BI-RADS Category 1: Negative 3346Y
== END ==
PROVIDERS: PCP Specialist; Referring Provider Specialist; Visit Provider Specialist
DX: Z12.31 Encounter for screening mammogram for malignant neoplasm of breast (principal); Z80.3 Family history of malignant neoplasm of breast
CPT/HCPCS: 77063; 77067

== ENCOUNTER → 2022-12-13 07:48 | Outpatient (CLI) | payer OTHER, SELFPAY ==
[2021-08-16 08:51] VITALS: BMI 23.3
--- NOTE | 2022-12-13 | DI.US.S_ITS ---
PROCEDURE: US PELVIC COMPLETE INDICATIONS: Unspecified dyspareunia TECHNIQUE: Real-time scanning was performed of the pelvic organs, with image documentation. Additional endovaginal scanning was necessary due to incomplete visualization of the adnexal and endometrial structures by transabdominal scanning. COMPARISON: [facility], CT, CT ABDOMEN PELVIS W CON, 09/20/2019, 1:30. [facility], US, US PELVIC COMPLETE, 11/11/2019, 12:37. FINDINGS: Uterus: Surgically absent. Ovaries: The right ovary is probably visualized and measures 2.1 x 1.2 x 1.1 cm, with a calculated ovarian volume of 1 cc. The left ovary measures 3 x 2.5 x 1.6 cm, with a calculated ovarian volume of 6 cc. The ovaries have a normal sonographic appearance. Less than 12 follicles can be seen in each ovary. No adnexal masses are seen. Other: No pathologic free abdominal or pelvic fluid. IMPRESSION: No abnormality identified. No free fluid. Post hysterectomy. MRI or CT could be considered for further evaluation. We strive to produce accurate, complete, and clear reports of imaging services. To assist us in improving patient care, this report was composed using standard report templates and voice recognition software. Therefore, it may contain abnormal punctuation, insertions and/or omissions. Occasional wrong-word or sound-alike substitutions may occur. Though we review the report and make efforts to correct it, we do recommend that the report be read carefully in proper context to recognize any text inaccuracies. Dictated by: Hollis Elkins M.D. on 12/13/2022 at 10:24 Approved by: Hollis Elkins M.D. on 12/13/2022 at 10:27
== END ==
PROVIDERS: PCP Specialist; Referring Provider Specialist; Visit Provider Specialist
DX: N94.10 Unspecified dyspareunia (principal); Z90.710 Acquired absence of both cervix and uterus
CPT/HCPCS: 76830; 76856

== ENCOUNTER → 2023-10-06 09:55 | Outpatient (CLI) | payer OTHER, SELFPAY ==
[2021-08-16 08:51] VITALS: BMI 23.3
[2023-10-06 11:10] LABS: Cholesterol 265 mg/dL (140-199); HDL Cholesterol 74 mg/dL (40-60); LDL Cholesterol Calculated 169 mg/dL (<100); Triglycerides 111 mg/dL (35-150)
[2023-10-06 11:37] LABS: TSH w/ Reflex to FT4 1.91 uIU/mL (0.47-4.68)
== END ==
PROVIDERS: PCP Student in an Organized Health Care Education/Training Program; Referring Provider Student in an Organized Health Care Education/Training Program; Visit Provider Student in an Organized Health Care Education/Training Program
DX: E03.9 Hypothyroidism, unspecified (principal)
CPT/HCPCS: 36415; 80061; 84443

== ENCOUNTER → 2023-10-16 12:49 | Outpatient (CLI) | payer OTHER, SELFPAY ==
[2021-08-16 08:51] VITALS: BMI 23.3
--- NOTE | 2023-10-16 | DI.MG.S_ITS ---
BILATERAL DIGITAL SCREENING MAMMOGRAM 3D/2D WITH CAD WITH AUGMENTATION: 10/16/2023 CLINICAL: Routine screening. Family history of breast cancer. Comparison is made to exams dated: 10/11/2022 mammogram, 10/05/2021 mammogram, and 09/10/2020 mammogram - [facility]. Both breasts are heterogeneously dense, which may obscure small masses (category c / 51-75% glandular tissue). Current study was also evaluated with a Computer Aided Detection (CAD) system. There is a possible new 0.4 cm oval equal density asymmetry in the right breast middle depth medial region seen on the craniocaudal view only. No other significant masses, calcifications, or other findings are seen in either breast. IMPRESSION: INCOMPLETE: NEEDS ADDITIONAL IMAGING EVALUATION The possible new 0.4 cm oval equal density asymmetry in the right breast is indeterminate. Additional views with possible ultrasound are recommended. The implants have a stable appearance. Based on the Tyrer Cuzick model (a risk assessment model) the patient's lifetime risk is 13.4% and her 10 year risk is 6.1%. According to the ACR, ACS, and NCCN guidelines, an annual breast MRI exam along with mammogram is recommended if the patient's lifetime risk is 20% or greater. This exam was interpreted at Station ID: [id number]. NOTE: For mammograms, a report in lay terms will be sent to the patient. Approximately 15% of breast malignancies will not be visualized mammographically. In the management of a palpable breast mass, a negative mammogram must not discourage biopsy of a clinically suspicious lesion. Electronically Signed By: Sean reddy/aliya:10/16/2023 18:18:22 copy to: DAREN CASTRO [facility], ph: [phone], fax: [phone] letter sent: Additional Imaging Needed ACR BI-RADS Category 0: Incomplete 3340F
== END ==
PROVIDERS: PCP Student in an Organized Health Care Education/Training Program; Referring Provider Obstetrics & Gynecology; Visit Provider Obstetrics & Gynecology
DX: Z12.31 Encounter for screening mammogram for malignant neoplasm of breast (principal); Z80.3 Family history of malignant neoplasm of breast; N64.89 Other specified disorders of breast
CPT/HCPCS: 77063; 77067

== ENCOUNTER → 2023-10-31 08:51 | Outpatient (CLI) | payer OTHER, SELFPAY ==
[2021-08-16 08:51] VITALS: BMI 23.3
--- NOTE | 2023-10-31 | DI.MG.S_ITS ---
UNILATERAL RIGHT DIGITAL DIAGNOSTIC MAMMOGRAM 3D/2D WITH ADDITIONAL VIEWS: 10/31/2023 CLINICAL: Additional evaluation requested from prior study. Comparison is made to exams dated: 10/16/2023 mammogram, 10/11/2022 mammogram, and 10/05/2021 mammogram - [facility]. The right breast is extremely dense, which lowers the sensitivity of mammography (category d />75% glandular tissue). There is a new 5 mm oval equal density focal asymmetry with a microlobulated margin in the right breast at 4 o'clock middle depth. This is confirmed with additional views. No other significant masses or calcifications are seen in the breast. IMPRESSION: INCOMPLETE: NEEDS ADDITIONAL IMAGING EVALUATION The new 5 mm focal asymmetry in the right breast is confirmed with additional views but remains indeterminate. An ultrasound is recommended. This was performed immediately following this exam. Based on the Tyrer Cuzick model (a risk assessment model) the patient's lifetime risk is 19.7% and her 10 year risk is 9.1%. According to the ACR, ACS, and NCCN guidelines, an annual breast MRI exam along with mammogram is recommended if the patient's lifetime risk is 20% or greater. This exam was interpreted at Station ID: [id number]. NOTE: For mammograms, a report in lay terms will be sent to the patient. Approximately 15% of breast malignancies will not be visualized mammographically. In the management of a palpable breast mass, a negative mammogram must not discourage biopsy of a clinically suspicious lesion. Electronically Signed By: Allie perkins/:10/31/2023 09:42:23 copy to: DAREN CASTRO [facility], ph: [phone], fax: [phone] ACR BI-RADS Category 0: Incomplete 3340F
--- NOTE | 2023-10-31 | DI.US.S_ITS ---
LIMITED ULTRASOUND OF RIGHT BREAST: 10/31/2023 CLINICAL: Patient returns today to evaluate a focal asymmetry in the right breast. Comparison is made to exams dated: 10/31/2023 mammogram and 10/16/2023 mammogram - [facility]. Ultrasound of the right breast 3-5 o'clock region was performed. Mchugh scale images of the real-time examination were reviewed. There is heterogeneous, dense tissue overlying an implant. No significant abnormalities were seen sonographically in the right breast. Specifically, no finding to correspond to the patient's mammographic abnormality. IMPRESSION: PROBABLY BENIGN There is no sonographic correlate to the patient's mammographic asymmetry. A follow-up right mammogram in 6 months is recommended to demonstrate stability. Findings and recommendations were conveyed to the patient at time of exam. This exam was interpreted at Station ID: [id number]. Electronically Signed By: Allie perkins/:10/31/2023 10:11:38 copy to: DAREN CASTRO, [facility], ph: [phone], fax: [phone] letter sent: Followup Recommended Ultrasound BI-RADS: 3 Probably benign
== END ==
PROVIDERS: PCP Student in an Organized Health Care Education/Training Program; Referring Provider Obstetrics & Gynecology; Visit Provider Obstetrics & Gynecology
DX: R92.8 Other abnormal and inconclusive findings on diagnostic imaging of breast (principal); N64.89 Other specified disorders of breast
CPT/HCPCS: 76642; 77065; G0279

== ENCOUNTER → 2024-09-10 09:31 | Outpatient (CLI) | payer BC, SELFPAY ==
[2021-08-16 08:51] VITALS: BMI 23.3
[2024-09-10 10:42] LABS: Hemoglobin A1C% w Est Avg Glu 5.7 % (4.0-6.0)
[2024-09-10 11:19] LABS: TSH w/ Reflex to FT4 0.98 uIU/mL (0.47-4.68)
== END ==
PROVIDERS: PCP Student in an Organized Health Care Education/Training Program; Referring Provider Student in an Organized Health Care Education/Training Program; Visit Provider Student in an Organized Health Care Education/Training Program
DX: Z13.1 Encounter for screening for diabetes mellitus (principal); E03.9 Hypothyroidism, unspecified; Z79.899 Other long term (current) drug therapy
CPT/HCPCS: 36415; 83036; 84443

== ENCOUNTER → 2025-02-25 08:24 | Outpatient (CLI) | payer BC, SELFPAY ==
[2021-08-16 08:51] VITALS: BMI 23.3
[2025-02-25 08:43] LABS: Add Manual Diff / Slide Review NO; Basophils Absolute Auto 0 /uL (0-100); Basophils Percent Auto 0.6 % (0-2); Eosinophils Absolute Auto 100 /uL (0-450); Eosinophils Percent Auto 3.3 % (2-4); Hematocrit 37.3 % (36-46); Hemoglobin 12.7 g/dL (12.0-16.0); Lymphocytes Absolute Auto 1300 /uL (1100-4500); Lymphocytes Percent Auto 31.9 % (25-40); Mean Corpuscular HGB Conc 34.1 % (30-36); Mean Corpuscular Hemoglobin 31.4 PG (26-34); Mean Corpuscular Volume 92.2 fL (80-100); Monocytes Absolute Auto 300 /uL (0-900); Monocytes Percent Auto 7.1 % (3-14); Neutrophils Absolute Auto 2300 /uL (1500-7000); Neutrophils Percent Auto 57.1 % (50-75); Platelet Count 178 X10^3/uL (150-400); Red Blood Cell Count 4.04 X10^6/uL (4.0-5.2); Red Cell Distribution Width 13.7 % (11.6-14.8); White Blood Cell Count 4.1 X10^3/uL (4.5-11.0)
[2025-02-25 08:57] LABS: Hemoglobin A1C% w Est Avg Glu 5.2 % (4.0-6.0)
[2025-02-25 09:08] LABS: Alanine Aminotransferase 28 IU/L (<35); Albumin 4.5 g/dL (3.5-5.0); Alkaline Phosphatase 38 U/L (38-126); Aspartate Aminotransferase 30 IU/L (14-36); Bilirubin Total 1.4 mg/dL (0.2-1.3); Blood Urea Nitrogen 17 mg/dL (7-17); Calcium 9.3 mg/dL (8.4-10.2); Carbon Dioxide 26 mmol/L (22-32); Chloride 104 mmol/L (98-107); Estimated Glomerular Filt Rate > 60 mL/min (>60); Globulin 2.3 g/dL (1.7-4.1); Glucose 99 mg/dL (80-110); HEMOLYSIS 25 (0-50); Potassium 4.1 mmol/L (3.4-5.1); Sodium 138 mmol/L (137-145); Total Protein 6.8 g/dL (6.3-8.2)
[2025-02-25 09:33] LABS: Free T4, Direct Thyroxine 2.07 ng/dL (0.78-2.19)
[2025-02-25 09:47] LABS: Thyroid Stimulating Hormone 1.89 uIU/mL (0.47-4.68)
[2025-02-27 09:43] LABS: Cholesterol 269 mg/dL (140-199); HDL Cholesterol 72 mg/dL (40-60); LDL Cholesterol Calculated 173 mg/dL (<100); Triglycerides 119 mg/dL (35-150)
== END ==
PROVIDERS: PCP Student in an Organized Health Care Education/Training Program; Referring Provider Student in an Organized Health Care Education/Training Program; Visit Provider Student in an Organized Health Care Education/Training Program
DX: Z13.1 Encounter for screening for diabetes mellitus (principal); E03.9 Hypothyroidism, unspecified; E78.5 Hyperlipidemia, unspecified; R74.8 Abnormal levels of other serum enzymes
CPT/HCPCS: 36415; 80053; 80061; 83036; 84439; 84443; 85025

== ENCOUNTER → 2025-07-01 09:25 | Outpatient (CLI) | payer BC, SELFPAY ==
[2021-08-16 08:51] VITALS: BMI 23.3
--- NOTE | 2025-07-01 09:27 | DI.RAD.S_ITS ---
PROCEDURE: XR FOOT RT MIN 3V INDICATIONS: r/o broken middle toe TECHNIQUE: 4 views of the foot were acquired. COMPARISON: None. FINDINGS: Bones: Acute oblique fracture through 3rd middle phalanx is seen with minimal lateral displacement at fracture site. No other fracture or dislocation. Osteoarthritic changes throughout right foot are seen. No suspicious bony lesions. Soft tissues: No tibiotalar joint effusion. Achilles tendon appears normal. IMPRESSION: Minimally displaced oblique fracture involving 3rd middle phalangeal shaft. No other fracture or dislocation. [id number] right foot joint osteoarthritis . Dictated by: Parmjit Maki M.D. on 07/01/2025 at 9:57 Approved by: Parmjit Maki M.D. on 07/01/2025 at 10:01
== END ==
PROVIDERS: PCP Student in an Organized Health Care Education/Training Program; Referring Provider Student in an Organized Health Care Education/Training Program; Visit Provider Student in an Organized Health Care Education/Training Program
DX: S90.121A Contusion of right lesser toe(s) without damage to nail, initial encounter (principal); S92.521A Displaced fracture of middle phalanx of right lesser toe(s), initial encounter for closed fracture; X58.XXXA Exposure to other specified factors, initial encounter
CPT/HCPCS: 73630